=== PATIENT | male | born 1935 | race African-American/Black ===

== ENCOUNTER 2020-01-15 17:17 | Inpatient (IN) ==
[2020-01-15] MEDS ORDERED: DEXTROSE 50% 25 GM/50 ML VIAL IV PRN (21:37)
[2020-01-15] MEDS ORDERED: ACETAMINOPHEN 325 MG TABLET PO PRN (21:37)
[2020-01-15] MEDS ORDERED: GLUCAGON 1 MG VIAL IM PRN (21:37)
[2020-01-15] MEDS ORDERED: ONDANSETRON 4 MG/2 ML VIAL IV PRN (21:37)
[2020-01-15] MEDS ORDERED: DOCUSATE SODIUM 100 MG CAPSULE PO PRN (21:37)
[2020-01-15] MEDS ORDERED: ALBUTEROL/IPRATROPIUM 3 ML NEB RESP TX PRN (21:37)
[2020-01-15] MEDS: SODIUM CHLORIDE 0.9% 1,000 ML IV SCH (22:06)
[2020-01-15] MEDS: METOPROLOL TARTRATE 50 MG TABLET PO SCH (22:07)
[2020-01-15] MEDS: DOXYCYCLINE HYCLATE INJ 100 MG in SODIUM CHLORIDE 0.9% 100 ML IV SCH (22:51)
[2020-01-15] MEDS ORDERED: METOPROLOL TARTRATE 5 MG/5 ML VIAL IV ONE ×2 (23:56→23:59)
[2020-01-16 01:29] LABS: Basophils % 0.1 % (0.0-0.8); Hematocrit 32.1 VOL% (42.0-52.0); Hemoglobin 10.8 GM/DL (14.0-18.0); Immature Granulocytes % 0.6 %; Immature Granulocytes Absolute 0.05 #; Lymphocytes # 0.5 10*3/uL (1.4-4.0); Mean Corpuscular HGB Conc 33.6 GM/DL (32-36); Mean Corpuscular Volume 88.9 FL (87-102); Mean Platelet Volume 9.6 FL (9.6-12.0); Monocytes % 1.2 % (1.7-12.7); Neutrophils % 91.1 % (38.7-73.9); Platelet Count 495 T/CUMM (130-400); Red Blood Count 3.61 MC/CUMM (3.8-5.5); Red Cell Distribution Width 15.1 % (9.3-17.3); White Blood Count 7.8 T/CUMM (4-12)
[2020-01-16 02:04] LABS: Albumin 2.4 G/DL (3.4-5.0); Bilirubin,Total 0.4 MG/DL (0.2-1.0); Calcium 8.6 MG/DL (8.5-10.1); Osmolality,Calculated 288.3 MOS/KG (273-304); Risk Ratio 2.88; Thyroid Stimulating Hormone 2.74 uIU/ml (0.358-3.74); Total Protein 6.7 G/DL (6.4-8.3); VLDL CHOLESTEROL 13.2 MG/DL
[2020-01-16 02:07] LABS: Lymphocytes 10 % (20-55); Microcytosis Slight; Platelet Estimate Increased; Segmented Neutrophils 90 % (50-85); Total Cells Counted 100
[2020-01-16 02:08] LABS: Target Cells 1+
[2020-01-16 02:09] LABS: Polychromasia Slight
[2020-01-16] MEDS: METOPROLOL TARTRATE 50 MG TABLET PO SCH ×4 (03:26→21:34)
[2020-01-16] MEDS ORDERED: METOPROLOL TARTRATE 50 MG TABLET PO SCH (09:00)
[2020-01-16] MEDS: SODIUM CHLORIDE 0.9% 1,000 ML IV SCH ×2 (09:12→17:35)
[2020-01-16] MEDS: DOXYCYCLINE HYCLATE INJ 100 MG in SODIUM CHLORIDE 0.9% 100 ML IV SCH ×2 (09:13→21:35)
[2020-01-16] MEDS: APIXABAN 2.5 MG TABLET PO SCH ×2 (12:29→21:34)
[2020-01-16] MEDS ORDERED: SODIUM POLYSTYRENE SULFATE 15 GM/60 ML BOTTLE PO STA (12:56)
[2020-01-16] MEDS: DILTIAZEM 30 MG TABLET PO SCH ×3 (13:04→21:34)
[2020-01-16 14:03] LABS: Bilirubin,Urine Negative (Negative); Blood, Urine Negative (Negative); Glucose,Urine (UA) Negative (Negative); Hyaline Casts,Urine 7 /LPF (0-3); Ketones,Urine Negative (Negative); Mucus,Urine Occasional /LPF (Occasional); Nitrite,Urine Negative (Negative); Protein,Urine Negative; RBC,Urine 1 /HPF (0-4); Urine Appearance CLEAR (Clear); Urine Color Straw (Yellow); Urine Specific Gravity 1.011 (1.001-1.035); Urine Urobilinogen < 2.0 EU/DL (0.2-1.0); WBC,Urine 1 /HPF (0-6)
[2020-01-16 14:43] LABS: Folate 7.6 NG/ML (5.4-24.0); Vitamin B12 423 PG/ML (211-911)
[2020-01-16] MEDS: cefTRIAXone 1,000 MG in SYRINGE 1 EACH IV SCH (16:24)
[2020-01-17] MEDS: METOPROLOL TARTRATE 50 MG TABLET PO SCH ×3 (04:34→21:05)
[2020-01-17] MEDS: SODIUM CHLORIDE 0.9% 1,000 ML IV SCH ×3 (05:54→23:19)
[2020-01-17 06:07] LABS: Basophils % 0.1 % (0.0-0.8); Eosinophils % 0.2 % (0.00-10.9); Hematocrit 31.4 VOL% (42.0-52.0); Hemoglobin 10.3 GM/DL (14.0-18.0); Immature Granulocytes % 0.5 %; Immature Granulocytes Absolute 0.06 #; Lymphocytes % 8.1 % (21.2-54.2); Mean Corpuscular HGB Conc 32.8 GM/DL (32-36); Mean Platelet Volume 9.6 FL (9.6-12.0); Monocytes % 7.1 % (1.7-12.7); Platelet Count 515 T/CUMM (130-400); Red Blood Count 3.53 MC/CUMM (3.8-5.5); Red Cell Distribution Width 15.3 % (9.3-17.3)
[2020-01-17 06:18] LABS: Calcium 8.7 MG/DL (8.5-10.1); Osmolality,Calculated 284.4 MOS/KG (273-304)
[2020-01-17 06:23] LABS: Albumin 2.3 G/DL (3.4-5.0); Bilirubin,Total 1.4 MG/DL (0.2-1.0); Calcium 8.8 MG/DL (8.5-10.1); Osmolality,Calculated 284.4 MOS/KG (273-304); Total Protein 6.4 G/DL (6.4-8.3)
[2020-01-17] MEDS: ASCORBIC ACID 500 MG TABLET PO SCH (09:24)
[2020-01-17] MEDS: APIXABAN 2.5 MG TABLET PO SCH ×2 (09:24→21:05)
[2020-01-17] MEDS: ZINC SULFATE 220 MG CAPSULE PO SCH (09:24)
[2020-01-17] MEDS: DOXYCYCLINE HYCLATE INJ 100 MG in SODIUM CHLORIDE 0.9% 100 ML IV SCH ×2 (09:25→21:06)
[2020-01-17] MEDS: DILTIAZEM 30 MG TABLET PO SCH (09:27)
[2020-01-17] MEDS: DILTIAZEM CD 120 MG CAPSULE PO SCH (10:33)
[2020-01-17] MEDS: cefTRIAXone 1,000 MG in SYRINGE 1 EACH IV SCH (13:03)
[2020-01-17] MEDS: MORPHINE 4 MG/1 ML VIAL IV PRN (21:03)
[2020-01-18] MEDS: MORPHINE 4 MG/1 ML VIAL IV PRN ×2 (00:34→05:32)
[2020-01-18 06:11] LABS: Basophils % 0.2 % (0.0-0.8); Eosinophils % 0.2 % (0.00-10.9); Hematocrit 33.6 VOL% (42.0-52.0); Hemoglobin 11.2 GM/DL (14.0-18.0); Immature Granulocytes % 0.6 %; Immature Granulocytes Absolute 0.07 #; Lymphocytes # 1.1 10*3/uL (1.4-4.0); Lymphocytes % 8.5 % (21.2-54.2); Mean Corpuscular HGB Conc 33.3 GM/DL (32-36); Mean Corpuscular Volume 87.7 FL (87-102); Mean Platelet Volume 9.8 FL (9.6-12.0); Monocytes % 6.9 % (1.7-12.7); Neutrophils % 83.6 % (38.7-73.9); Platelet Count 538 T/CUMM (130-400); Red Blood Count 3.83 MC/CUMM (3.8-5.5); Red Cell Distribution Width 15.4 % (9.3-17.3); White Blood Count 12.7 T/CUMM (4-12)
[2020-01-18 06:28] LABS: Calcium 9.1 MG/DL (8.5-10.1); Osmolality,Calculated 284.4 MOS/KG (273-304)
[2020-01-18 06:47] LABS: Calcium 9.2 MG/DL (8.5-10.1); Osmolality,Calculated 286.3 MOS/KG (273-304)
[2020-01-18] MEDS: ZINC SULFATE 220 MG CAPSULE PO SCH (08:20)
[2020-01-18] MEDS: APIXABAN 2.5 MG TABLET PO SCH ×2 (08:20→21:35)
[2020-01-18] MEDS: METOPROLOL TARTRATE 50 MG TABLET PO SCH (08:20)
[2020-01-18] MEDS: ASCORBIC ACID 500 MG TABLET PO SCH ×2 (08:20→21:36)
[2020-01-18] MEDS: DILTIAZEM CD 120 MG CAPSULE PO SCH ×2 (08:20→21:36)
[2020-01-18] MEDS: BISOPROLOL 5 MG TABLET PO SCH ×2 (09:00→21:35)
[2020-01-18] MEDS: DOXYCYCLINE HYCLATE INJ 100 MG in SODIUM CHLORIDE 0.9% 100 ML IV SCH ×2 (10:55→22:30)
[2020-01-18] MEDS ORDERED: DIGOXIN 0.5 MG/2 ML AMP IV ONE (11:51)
[2020-01-18] MEDS: cefTRIAXone 1,000 MG in SYRINGE 1 EACH IV SCH (15:02)
[2020-01-18] MEDS: HALOPERIDOL 5 MG/ML AMP IM PRN (17:10)
[2020-01-19 05:54] LABS: Basophils % 0.1 % (0.0-0.8); Eosinophils % 0.1 % (0.00-10.9); Hematocrit 33.2 VOL% (42.0-52.0); Hemoglobin 11.2 GM/DL (14.0-18.0); Immature Granulocytes % 0.4 %; Immature Granulocytes Absolute 0.06 #; Lymphocytes # 1.1 10*3/uL (1.4-4.0); Lymphocytes % 8.1 % (21.2-54.2); Mean Corpuscular HGB Conc 33.7 GM/DL (32-36); Mean Corpuscular Volume 87.4 FL (87-102); Mean Platelet Volume 10.1 FL (9.6-12.0); Monocytes % 6.6 % (1.7-12.7); Neutrophils % 84.7 % (38.7-73.9); Platelet Count 469 T/CUMM (130-400); Red Cell Distribution Width 15.5 % (9.3-17.3)
[2020-01-19 06:15] LABS: Calcium 9.2 MG/DL (8.5-10.1); Osmolality,Calculated 283.5 MOS/KG (273-304)
[2020-01-19 06:16] LABS: Calcium 9.2 MG/DL (8.5-10.1); Osmolality,Calculated 282.7 MOS/KG (273-304)
[2020-01-19] MEDS: SODIUM CHLORIDE 0.9% 1,000 ML IV SCH (08:01)
[2020-01-19] MEDS: BISOPROLOL 5 MG TABLET PO SCH (09:24)
[2020-01-19] MEDS: ZINC SULFATE 220 MG CAPSULE PO SCH (09:24)
[2020-01-19] MEDS: DILTIAZEM CD 120 MG CAPSULE PO SCH (09:25)
[2020-01-19] MEDS: APIXABAN 2.5 MG TABLET PO SCH (09:25)
[2020-01-19] MEDS: ASCORBIC ACID 500 MG TABLET PO SCH (09:25)
[2020-01-19] MEDS: DOXYCYCLINE HYCLATE INJ 100 MG in SODIUM CHLORIDE 0.9% 100 ML IV SCH (09:50)
[2020-01-19] MEDS: HALOPERIDOL 5 MG/ML AMP IM PRN (10:38)
[2020-01-19] MEDS ORDERED: SODIUM POLYSTYRENE SULFATE 15 GM/60 ML BOTTLE PO ONE (11:08)
[2020-01-19] MEDS: cefTRIAXone 1,000 MG in SYRINGE 1 EACH IV SCH (12:51)
[2020-01-19 13:00] VITALS: BP 149/78
== END 2020-01-19 16:15 | disposition home health service (06) | DRG 194 ==
LOC: N.TELES 20:15
PROVIDERS: ADMIT Internal Medicine; ATTEND Internal Medicine